=== PATIENT | female | born 1985 | race Caucasian/White ===

== ENCOUNTER 2021-11-09 12:17 | Emergency (ER) | payer OTHER, SELFPAY ==
[2021-11-09 14:07] VITALS: BP 149/76; PULSE 108; RESP 16; TEMP 37.1; O2SAT 99; BMI 28.0
--- NOTE | 2021-11-09 14:37 | PC.NURSE ---
LATE ENTRY PT OFFERED NO VAGINAL BLEEDING OR LOW ABD PAIN. REPORTING SEVERAL EPISODES OF DIARRHEA. PT ASKING ABOUT GETTING AN US, SHE REPORTED HAVING ONE LAST WEEK AT [facility]. SHE WAS EDUCATED ON PROCESS OF SEEING MD FOR APPROPRIATE IMAGING FOR CARE.
== END 2021-11-09 18:17 | disposition left against medical advice (07) ==
PROVIDERS: Emergency Provider Emergency Medicine
DX: O26.91 Pregnancy related conditions, unspecified, first trimester (principal); Z3A.01 Less than 8 weeks gestation of pregnancy
CPT/HCPCS: 99281